=== PATIENT | female | born 1995 | race Hispanic/Latino ===

== ENCOUNTER 2020-10-07 20:42 | Emergency (ER) | payer BC ==
[2020-10-07 21:48] LABS: Bilirubin Negative (Negative); Blood, Urine Trace (Negative); Glucose, Urine (Dipstick) Normal (Negative); Ketone, Urine Negative (Negative); Leukocyte 500 Leu/uL (Negative); Nitrite Negative (Negative); Protein, Urine (Dipstick) 10 mg/dL (Neg-Trace); Specific Gravity, Urine 1.016 (1.002-1.036); Squamous Epithelial 0-3 HPF (0-3); Urobilinogen Normal mg/dL (Less than 2); WBC/HPF Greater than 50 HPF (0-3); pH, Urine 6.5 (5.0-9.0)
[2020-10-07 21:49] LABS: Bacteria/HPF 1+ HPF (None Seen); Clarity Cloudy (Clear); Pregnancy Test - Urine (BHCG) Negative (Negative); Pregu Control Background? CLEAR/WHITE (CLR/WHITE); Pregu Control Bar Appear? YES (CONTROL BAR); Specific Gravity 1.016 (1.002-1.036)
== END 2020-10-07 22:28 | disposition home or self-care (01) ==
LOC: ERS 20:42
DX: N39.0 Urinary tract infection, site not specified (principal)
CPT/HCPCS: 81003; 81015; 81025; 87077; 87086; 87186; 99284